=== PATIENT | female | born 1945 | race Caucasian/White ===

== ENCOUNTER 2017-12-09 10:27 | Day surgery (SDC) | payer MEDICARE, BC ==
[2017-12-09] VITALS (10 sets, daily range): BP systolic 112–124; BP diastolic 50–72
[~2017-12-09] VITALS: Ht 172.7 cm; Wt 72.6 kg
[~2017-12-09 10:27] MED LIST: AMIO200T40 PO; APIX5TAB3 PO; DOCU-28 PO; FERR325T39 PO; FURO40TA4 PO; MULT-1085 PO; OMEG10006 PO; PANT20TA3 PO; POTA20TA19 PO; [UNRECOGNIZED DRUG - CODE] PO; [UNRECOGNIZED DRUG - CODE] PO
[2017-12-09] MEDS ORDERED: fentaNYL/PF 50MCG/1 ML 2ML syringe IV ONE (11:25)
[2017-12-09] MEDS ORDERED: normal saline 1000ml 1,000 ML IV SCH (11:25)
[2017-12-09] MEDS ORDERED: MIDAZolam 5mg/ml 2ml vial IV ONE (11:25)
== END 2017-12-09 13:50 | disposition home or self-care (01) ==
LOC: SSTAY O 10:27
PROVIDERS: ATTEND Internal Medicine Interventional Cardiology
DX: I48.1 Persistent atrial fibrillation (principal); J44.9 Chronic obstructive pulmonary disease, unspecified; E03.9 Hypothyroidism, unspecified; I11.0 Hypertensive heart disease with heart failure; I50.9 Heart failure, unspecified; I44.7 Left bundle-branch block, unspecified; K21.9 Gastro-esophageal reflux disease without esophagitis; F10.21 Alcohol dependence, in remission; Z88.5 Allergy status to narcotic agent; Z87.891 Personal history of nicotine dependence; Z87.01 Personal history of pneumonia (recurrent); Z99.81 Dependence on supplemental oxygen; Z90.89 Acquired absence of other organs; Z79.01 Long term (current) use of anticoagulants; Z79.899 Other long term (current) drug therapy; Z98.890 Other specified postprocedural states
CPT/HCPCS: 92960; J2250; J3010; J7030; 93005; A4620